=== PATIENT | male | born 1945 ===

== ENCOUNTER 2019-01-11 20:15 | Inpatient (IN) ==
[2019-01-11] MEDS ORDERED: SODIUM CHLORIDE 0.9% 1,000 ML IV PRN (21:09)
[2019-01-11] MEDS ORDERED: POTASSIUM CHLORIDE 20 MEQ PACK PER TUBE PRN (21:11)
[2019-01-11] MEDS ORDERED: POTASSIUM CHLORIDE RIDER 0 ML IV ONE (21:58)
[2019-01-11 22:05] LABS: Basophils % 0.1 % (0.0-0.8); Eosinophils # 0.3 10*3/uL (0.0-0.87); Eosinophils % 2.8 % (0.00-10.9); Hematocrit 21.2 VOL% (42.0-52.0); Hemoglobin 6.7 GM/DL (14.0-18.0); Immature Granulocytes % 0.4 %; Immature Granulocytes Absolute 0.04 #; Lymphocytes # 2.2 10*3/uL (1.4-4.0); Lymphocytes % 19.4 % (21.2-54.2); Mean Corpuscular HGB Conc 31.6 GM/DL (32-36); Mean Corpuscular Volume 102.9 FL (87-102); Mean Platelet Volume 9.8 FL (9.6-12.0); Monocytes % 6.7 % (1.7-12.7); Neutrophils % 70.6 % (38.7-73.9); Platelet Count 475 T/CUMM (130-400); Red Blood Count 2.06 MC/CUMM (3.8-5.5); Red Cell Distribution Width 14.2 % (9.3-17.3); White Blood Count 11.3 T/CUMM (4-12)
[2019-01-11] MEDS ORDERED: POTASSIUM CHLORIDE 20 MEQ PACK ONE (22:08)
[2019-01-11 22:19] LABS: Alanine Aminotransferase 10 U/L (16-61); Albumin 1.4 G/DL (3.4-5.0); Alkaline Phosphatase 143 U/L (45-117); Aspartate Amino Transferase 15 U/L (0-37); Bilirubin,Total < 0.39 MG/DL (0.2-1.0); Blood Urea Nitrogen 19 MG/DL (7-18); Calcium 7.1 MG/DL (8.5-10.1); Glucose 179 MG/DL (74-106); Osmolality,Calculated 282.5 MOS/KG (273-304)
[2019-01-11 22:32] LABS: Folate > 24.0 NG/ML (5.4-24.0); Vitamin B12 739 PG/ML (211-911)
[2019-01-11 23:11] LABS: Sedimentation Rate-Westergren 145 MM/HR (0-20)
[2019-01-11 23:12] LABS: % Iron Saturation 19.3 % (18-50)
[2019-01-11 23:45] LABS: Apearance,Urine CLOUDY (Clear); Bacteria,Urine Many /HPF (Few); Bilirubin,Urine Negative (Negative); Blood, Urine Negative (Negative); Glucose,Urine (UA) 50 mg/dL (Negative); Ketones,Urine 5 mg/dL (Negative); Nitrite,Urine Negative (Negative); Protein,Urine 100 MG/DL; Urine Color Yellow (Yellow); Urine Specific Gravity 1.011 (1.001-1.035); Urine Urobilinogen < 2.0 EU/DL (0.2-1.0); WBC,Urine 41 /HPF (0-6)
[2019-01-12] MEDS: SODIUM CHLORIDE 0.9% 1,000 ML IV SCH ×4 (00:05→16:43)
[2019-01-12] MEDS ORDERED: GLUCAGON 1 MG VIAL IM PRN (00:37)
[2019-01-12] MEDS ORDERED: ACETAMINOPHEN 325 MG TABLET PEG PRN (00:37)
[2019-01-12] MEDS ORDERED: DEXTROSE 50% 25 GM/50 ML VIAL IV PRN (00:37)
[2019-01-12] MEDS ORDERED: ONDANSETRON 4 MG/2 ML VIAL IV PRN (00:37)
[2019-01-12] MEDS: POTASSIUM CHLORIDE 20 MEQ PACK PER TUBE PRN (02:52)
[2019-01-12] MEDS: cefTRIAXone 1,000 MG in SYRINGE 1 EACH IV SCH (02:52)
[2019-01-12] MEDS: levETIRAcetam LIQUID 100 MG/ML 30 ML/BOTTLE PO SCH ×3 (02:53→21:48)
[2019-01-12 07:32] LABS: Calcium 7.3 MG/DL (8.5-10.1); Osmolality,Calculated 281.8 MOS/KG (273-304); Risk Ratio 4.36; Thyroid Stimulating Hormone 1.2 uIU/ml (0.358-3.74)
[2019-01-12 09:23] LABS: Hemoglobin A1 (Alkaline) 97.2 % (96.5-98.5); Hemoglobin A2 (Alkaline) 2.8 % (1.5-3.5)
[2019-01-12 10:43] LABS: Lymphocytes # 2.8 10*3/uL (1.4-4.0); Lymphocytes % 23.9 % (21.2-54.2); Red Cell Distribution Width 15.4 % (9.3-17.3); White Blood Count 11.9 T/CUMM (4-12)
[2019-01-12 10:51] LABS: Basophils % 0.3 % (0.0-0.8); Eosinophils # 0.1 10*3/uL (0.0-0.87); Eosinophils % 0.9 % (0.00-10.9); Hematocrit 31.9 VOL% (42.0-52.0); Immature Granulocytes % 0.3 %; Immature Granulocytes Absolute 0.04 #; Mean Corpuscular HGB Conc 32.3 GM/DL (32-36); Mean Corpuscular Volume 97.9 FL (87-102); Mean Platelet Volume 9.1 FL (9.6-12.0); Monocytes % 6.4 % (1.7-12.7); Neutrophils % 68.2 % (38.7-73.9); Platelet Count 410 T/CUMM (130-400)
[2019-01-12 10:59] LABS: Hemoglobin 10.3 GM/DL (14.0-18.0); Red Blood Count 3.26 MC/CUMM (3.8-5.5)
[2019-01-12] MEDS: INSULIN LISPRO 100 UNIT/ML SUBCUT SCH ×4 (15:33→21:48)
[2019-01-12] MEDS: INSULIN GLARGINE 100 UNIT/ML SUBCUT SCH (21:47)
[2019-01-13] MEDS: cefTRIAXone 1,000 MG in SYRINGE 1 EACH IV SCH (02:00)
[2019-01-13] MEDS: SODIUM CHLORIDE 0.9% 1,000 ML IV SCH ×3 (02:00→17:23)
[2019-01-13 04:58] LABS: Basophils % 0.2 % (0.0-0.8); Eosinophils # 0.4 10*3/uL (0.0-0.87); Eosinophils % 4.7 % (0.00-10.9); Hematocrit 29.3 VOL% (42.0-52.0); Hemoglobin 9.6 GM/DL (14.0-18.0); Immature Granulocytes % 0.5 %; Immature Granulocytes Absolute 0.04 #; Lymphocytes # 2.6 10*3/uL (1.4-4.0); Lymphocytes % 32.3 % (21.2-54.2); Mean Corpuscular HGB Conc 32.8 GM/DL (32-36); Mean Platelet Volume 10.1 FL (9.6-12.0); Monocytes % 6.3 % (1.7-12.7); Platelet Count 185 T/CUMM (130-400); Red Blood Count 2.99 MC/CUMM (3.8-5.5); Red Cell Distribution Width 15.1 % (9.3-17.3); White Blood Count 8.1 T/CUMM (4-12)
[2019-01-13 05:25] LABS: Calcium 7.2 MG/DL (8.5-10.1); Osmolality,Calculated 281.4 MOS/KG (273-304)
[2019-01-13] MEDS: POTASSIUM CHLORIDE 20 MEQ PACK PER TUBE PRN ×3 (08:20→16:43)
[2019-01-13] MEDS: levETIRAcetam LIQUID 100 MG/ML 30 ML/BOTTLE PO SCH ×2 (08:20→22:09)
[2019-01-13] MEDS ORDERED: MAGNESIUM SULF RIDER 4 GM in PREMIX 1 EACH IV PRN (09:58)
[2019-01-13] MEDS ORDERED: MAGNESIUM SULF RIDER 2 GM in PREMIX 1 EACH IV PRN (09:58)
[2019-01-13] MEDS: INSULIN LISPRO 100 UNIT/ML SUBCUT SCH ×4 (14:09→20:38)
[2019-01-13] MEDS ORDERED: ENOXAPARIN 40 MG/0.4 ML SYRINGE SUBCUT SCH (14:30)
[2019-01-13] MEDS: ENOXAPARIN 60 MG/0.6 ML SYRINGE SUBCUT SCH (16:43)
[2019-01-13] MEDS: INSULIN GLARGINE 100 UNIT/ML SUBCUT SCH (22:13)
[2019-01-14 01:53] LABS: Total Protein 6.3 G/DL (6.4-8.3)
[2019-01-14] MEDS: cefTRIAXone 1,000 MG in SYRINGE 1 EACH IV SCH (02:59)
[2019-01-14] MEDS: ENOXAPARIN 60 MG/0.6 ML SYRINGE SUBCUT SCH (04:35)
[2019-01-14] MEDS: levETIRAcetam LIQUID 100 MG/ML 30 ML/BOTTLE PO SCH ×2 (09:16→20:55)
[2019-01-14] MEDS: INSULIN LISPRO 100 UNIT/ML SUBCUT SCH ×4 (09:42→20:56)
[2019-01-14] MEDS: SODIUM CHLORIDE 0.9% 1,000 ML IV SCH (10:46)
[2019-01-14] MEDS: ACETAMINOPHEN 325 MG/10.15 ML UDCUP PEG PRN (13:36)
[2019-01-14] MEDS ORDERED: hydrALAZINE 10 MG TABLET PEG PRN (14:47)
[2019-01-14] MEDS: MEROPENEM 500 MG in SODIUM CHLORIDE 0.9% 100 ML IV SCH (15:47)
[2019-01-14] MEDS: amLODIPine 10 MG TABLET PEG SCH (15:47)
[2019-01-14] MEDS: APIXABAN 5 MG TABLET PEG SCH (20:55)
[2019-01-14] MEDS: INSULIN GLARGINE 100 UNIT/ML SUBCUT SCH (20:55)
[2019-01-15] MEDS: MEROPENEM 500 MG in SODIUM CHLORIDE 0.9% 100 ML IV SCH ×2 (03:45→16:13)
[2019-01-15 05:31] LABS: Basophils % 0.1 % (0.0-0.8); Eosinophils # 0.3 10*3/uL (0.0-0.87); Eosinophils % 3.6 % (0.00-10.9); Hemoglobin 10.5 GM/DL (14.0-18.0); Immature Granulocytes % 0.6 %; Immature Granulocytes Absolute 0.05 #; Lymphocytes # 2.4 10*3/uL (1.4-4.0); Lymphocytes % 30.8 % (21.2-54.2); Mean Corpuscular HGB Conc 31.8 GM/DL (32-36); Mean Platelet Volume 9.6 FL (9.6-12.0); Monocytes % 6.6 % (1.7-12.7); Neutrophils % 58.3 % (38.7-73.9); Platelet Count 366 T/CUMM (130-400); Red Cell Distribution Width 14.3 % (9.3-17.3); White Blood Count 7.8 T/CUMM (4-12)
[2019-01-15 05:51] LABS: Calcium 7.6 MG/DL (8.5-10.1); Osmolality,Calculated 295.4 MOS/KG (273-304); Prealbumin 8.8 MG/DL (20-40)
[2019-01-15 06:42] LABS: Total Protein (Chem) 6.3 G/DL (6.4-8.3)
[2019-01-15 09:21] LABS: Albumin (SPE) 1.8 G/DL (3.2-5.3); Albumin (SPE) Rel % 29.3 %; Alpha 1 (SPE) 0.3 G/DL (0.1-0.4); Alpha 1 (SPE) Rel % 4.8 %; Alpha 2 (SPE) 0.9 G/DL (0.4-1.0); Alpha 2 (SPE) Rel % 14.3 %; Beta (SPE) 0.7 G/DL (0.5-1.1); Beta (SPE) Rel % 10.9 %; Gamma (SPE) 2.6 G/DL (0.7-1.7); Gamma (SPE) Rel % 40.7 %
[2019-01-15] MEDS: levETIRAcetam LIQUID 100 MG/ML 30 ML/BOTTLE PO SCH (09:33)
[2019-01-15] MEDS: amLODIPine 10 MG TABLET PEG SCH (09:33)
[2019-01-15] MEDS: INSULIN LISPRO 100 UNIT/ML SUBCUT SCH ×4 (09:33→21:37)
[2019-01-15] MEDS: APIXABAN 5 MG TABLET PEG SCH (09:33)
[2019-01-15] MEDS: APIXABAN 2.5 MG TABLET PEG SCH ×2 (14:08→21:36)
[2019-01-15] MEDS: LANSOPRAZOLE ODT 30 MG TABLET PEG SCH (16:13)
[2019-01-15] MEDS: INSULIN GLARGINE 100 UNIT/ML SUBCUT SCH (21:36)
[2019-01-16] MEDS: levETIRAcetam LIQUID 100 MG/ML 30 ML/BOTTLE PO SCH ×3 (00:12→21:13)
[2019-01-16] MEDS: MEROPENEM 500 MG in SODIUM CHLORIDE 0.9% 100 ML IV SCH ×2 (03:38→16:07)
[2019-01-16] MEDS: INSULIN LISPRO 100 UNIT/ML SUBCUT SCH ×4 (08:44→21:12)
[2019-01-16] MEDS: APIXABAN 2.5 MG TABLET PEG SCH ×2 (09:41→21:10)
[2019-01-16] MEDS: amLODIPine 10 MG TABLET PEG SCH (09:41)
[2019-01-16] MEDS: LANSOPRAZOLE ODT 30 MG TABLET PEG SCH (09:41)
[2019-01-16] MEDS ORDERED: TUBERCULIN SKIN TEST 0.1 ML SYRINGE INTRADERM ONE (11:32)
[2019-01-16] MEDS: POTASSIUM PHOS/SOD PHOS POWDER 250 MG PACK PO SCH ×2 (16:07→21:13)
[2019-01-16] MEDS: INSULIN GLARGINE 100 UNIT/ML SUBCUT SCH (21:10)
[2019-01-17] MEDS: MEROPENEM 500 MG in SODIUM CHLORIDE 0.9% 100 ML IV SCH ×2 (02:19→15:37)
[2019-01-17 05:22] LABS: Basophils % 0.2 % (0.0-0.8); Eosinophils # 0.4 10*3/uL (0.0-0.87); Eosinophils % 3.4 % (0.00-10.9); Hematocrit 30.1 VOL% (42.0-52.0); Hemoglobin 9.7 GM/DL (14.0-18.0); Immature Granulocytes % 0.6 %; Immature Granulocytes Absolute 0.08 #; Lymphocytes # 2.5 10*3/uL (1.4-4.0); Lymphocytes % 19.1 % (21.2-54.2); Mean Corpuscular HGB Conc 32.2 GM/DL (32-36); Mean Platelet Volume 9.6 FL (9.6-12.0); Monocytes % 5.9 % (1.7-12.7); Neutrophils % 70.8 % (38.7-73.9); Platelet Count 415 T/CUMM (130-400); Red Blood Count 3.01 MC/CUMM (3.8-5.5); Red Cell Distribution Width 14.3 % (9.3-17.3)
[2019-01-17 05:41] LABS: Calcium 7.6 MG/DL (8.5-10.1); Osmolality,Calculated 295.5 MOS/KG (273-304)
[2019-01-17] MEDS: INSULIN LISPRO 100 UNIT/ML SUBCUT SCH ×4 (07:30→21:21)
[2019-01-17 09:07] LABS: Immuno Free Light Chain Kappa 17.88 MG/DL (0.33-1.94); Immuno Free Light Chain Lambda 16.24 MG/DL (0.57-2.63); Immuno Free Light Chain Ratio 1.1 MG/DL (0.26-1.65)
[2019-01-17] MEDS: POTASSIUM PHOS/SOD PHOS POWDER 250 MG PACK PO SCH (09:51)
[2019-01-17] MEDS: amLODIPine 10 MG TABLET PEG SCH (09:51)
[2019-01-17] MEDS: LANSOPRAZOLE ODT 30 MG TABLET PEG SCH (09:51)
[2019-01-17] MEDS: APIXABAN 2.5 MG TABLET PEG SCH ×2 (09:51→21:19)
[2019-01-17] MEDS: levETIRAcetam LIQUID 100 MG/ML 30 ML/BOTTLE PO SCH ×2 (09:52→21:19)
[2019-01-17] MEDS: INSULIN GLARGINE 100 UNIT/ML SUBCUT SCH (21:21)
[2019-01-18] MEDS: MEROPENEM 500 MG in SODIUM CHLORIDE 0.9% 100 ML IV SCH ×2 (04:53→15:41)
[2019-01-18 06:44] LABS: Basophils % 0.2 % (0.0-0.8); Eosinophils # 0.6 10*3/uL (0.0-0.87); Eosinophils % 4.7 % (0.00-10.9); Hemoglobin 9.1 GM/DL (14.0-18.0); Immature Granulocytes % 0.8 %; Lymphocytes # 2.2 10*3/uL (1.4-4.0); Lymphocytes % 17.2 % (21.2-54.2); Mean Corpuscular HGB Conc 31.4 GM/DL (32-36); Mean Platelet Volume 9.7 FL (9.6-12.0); Monocytes % 6.9 % (1.7-12.7); Neutrophils % 70.2 % (38.7-73.9); Platelet Count 366 T/CUMM (130-400); Red Blood Count 2.87 MC/CUMM (3.8-5.5); Red Cell Distribution Width 14.4 % (9.3-17.3); White Blood Count 12.7 T/CUMM (4-12)
[2019-01-18 07:22] LABS: Calcium 7.5 MG/DL (8.5-10.1); Osmolality,Calculated 293.5 MOS/KG (273-304); Prealbumin 10.8 MG/DL (20-40)
[2019-01-18] MEDS: INSULIN LISPRO 100 UNIT/ML SUBCUT SCH ×4 (09:00→21:35)
[2019-01-18] MEDS: amLODIPine 10 MG TABLET PEG SCH (09:01)
[2019-01-18] MEDS: APIXABAN 2.5 MG TABLET PEG SCH ×2 (09:01→21:33)
[2019-01-18] MEDS: levETIRAcetam LIQUID 100 MG/ML 30 ML/BOTTLE PO SCH ×2 (09:01→21:33)
[2019-01-18] MEDS: LANSOPRAZOLE ODT 30 MG TABLET PEG SCH (09:01)
[2019-01-18] MEDS: INSULIN GLARGINE 100 UNIT/ML SUBCUT SCH (21:34)
[2019-01-19] MEDS: MEROPENEM 500 MG in SODIUM CHLORIDE 0.9% 100 ML IV SCH ×2 (05:15→14:08)
[2019-01-19 05:45] LABS: Basophils % 0.2 % (0.0-0.8); Eosinophils # 0.6 10*3/uL (0.0-0.87); Eosinophils % 4.4 % (0.00-10.9); Hematocrit 28.6 VOL% (42.0-52.0); Hemoglobin 8.8 GM/DL (14.0-18.0); Immature Granulocytes % 0.8 %; Immature Granulocytes Absolute 0.11 #; Lymphocytes # 3.4 10*3/uL (1.4-4.0); Mean Corpuscular HGB Conc 30.8 GM/DL (32-36); Mean Corpuscular Volume 101.8 FL (87-102); Mean Platelet Volume 10.6 FL (9.6-12.0); Monocytes % 7.6 % (1.7-12.7); Platelet Count 320 T/CUMM (130-400); Red Blood Count 2.81 MC/CUMM (3.8-5.5); Red Cell Distribution Width 14.2 % (9.3-17.3); White Blood Count 13.2 T/CUMM (4-12)
[2019-01-19 06:08] LABS: Hypochromasia 1+; Platelet Estimate Adequate
[2019-01-19 06:12] LABS: Calcium 7.6 MG/DL (8.5-10.1)
[2019-01-19] MEDS: INSULIN LISPRO 100 UNIT/ML SUBCUT SCH ×4 (07:31→20:56)
[2019-01-19] MEDS: amLODIPine 10 MG TABLET PEG SCH (09:49)
[2019-01-19] MEDS: APIXABAN 2.5 MG TABLET PEG SCH ×2 (09:49→20:57)
[2019-01-19] MEDS: levETIRAcetam LIQUID 100 MG/ML 30 ML/BOTTLE PO SCH ×2 (09:49→20:55)
[2019-01-19] MEDS: LANSOPRAZOLE ODT 30 MG TABLET PEG SCH (09:49)
[2019-01-19] MEDS: INSULIN GLARGINE 100 UNIT/ML SUBCUT SCH (20:56)
[2019-01-20 06:53] LABS: Basophils % 0.3 % (0.0-0.8); Eosinophils # 0.5 10*3/uL (0.0-0.87); Eosinophils % 4.6 % (0.00-10.9); Hematocrit 28.9 VOL% (42.0-52.0); Hemoglobin 9.3 GM/DL (14.0-18.0); Immature Granulocytes % 0.6 %; Immature Granulocytes Absolute 0.07 #; Lymphocytes # 3.3 10*3/uL (1.4-4.0); Lymphocytes % 29.5 % (21.2-54.2); Mean Corpuscular HGB Conc 32.2 GM/DL (32-36); Mean Corpuscular Volume 100.3 FL (87-102); Mean Platelet Volume 10.2 FL (9.6-12.0); Monocytes % 8.8 % (1.7-12.7); Neutrophils % 56.2 % (38.7-73.9); Platelet Count 418 T/CUMM (130-400); Red Blood Count 2.88 MC/CUMM (3.8-5.5); White Blood Count 11.3 T/CUMM (4-12)
[2019-01-20 07:15] LABS: Calcium 7.7 MG/DL (8.5-10.1)
[2019-01-20] MEDS: INSULIN LISPRO 100 UNIT/ML SUBCUT SCH ×4 (09:57→21:41)
[2019-01-20] MEDS: amLODIPine 10 MG TABLET PEG SCH (09:59)
[2019-01-20] MEDS: levETIRAcetam LIQUID 100 MG/ML 30 ML/BOTTLE PO SCH ×2 (09:59→21:42)
[2019-01-20] MEDS: LANSOPRAZOLE ODT 30 MG TABLET PEG SCH (10:00)
[2019-01-20] MEDS: ERTAPENEM 1,000 MG in SODIUM CHLORIDE 0.9% 100 ML IV SCH (10:00)
[2019-01-20] MEDS: APIXABAN 2.5 MG TABLET PEG SCH ×2 (10:00→21:43)
[2019-01-20] MEDS: INSULIN GLARGINE 100 UNIT/ML SUBCUT SCH (21:41)
[2019-01-21] MEDS: ACETAMINOPHEN 325 MG/10.15 ML UDCUP PEG PRN (01:19)
[2019-01-21] MEDS: levETIRAcetam LIQUID 100 MG/ML 30 ML/BOTTLE PO SCH ×2 (10:26→22:40)
[2019-01-21] MEDS: INSULIN LISPRO 100 UNIT/ML SUBCUT SCH ×4 (10:26→22:41)
[2019-01-21] MEDS: APIXABAN 2.5 MG TABLET PEG SCH ×2 (10:27→22:40)
[2019-01-21] MEDS: amLODIPine 10 MG TABLET PEG SCH (10:27)
[2019-01-21] MEDS: ERTAPENEM 1,000 MG in SODIUM CHLORIDE 0.9% 100 ML IV SCH (10:27)
[2019-01-21] MEDS: LANSOPRAZOLE ODT 30 MG TABLET PEG SCH (10:27)
[2019-01-21] MEDS: INSULIN GLARGINE 100 UNIT/ML SUBCUT SCH (22:41)
[2019-01-22 05:31] LABS: Basophils % 0.2 % (0.0-0.8); Eosinophils # 0.3 10*3/uL (0.0-0.87); Eosinophils % 2.4 % (0.00-10.9); Hematocrit 28.1 VOL% (42.0-52.0); Hemoglobin 9.2 GM/DL (14.0-18.0); Immature Granulocytes % 0.6 %; Immature Granulocytes Absolute 0.08 #; Lymphocytes # 2.5 10*3/uL (1.4-4.0); Lymphocytes % 19.3 % (21.2-54.2); Mean Corpuscular HGB Conc 32.7 GM/DL (32-36); Mean Corpuscular Volume 98.6 FL (87-102); Mean Platelet Volume 10.2 FL (9.6-12.0); Monocytes % 7.2 % (1.7-12.7); Neutrophils % 70.3 % (38.7-73.9); Platelet Count 411 T/CUMM (130-400); Red Blood Count 2.85 MC/CUMM (3.8-5.5); Red Cell Distribution Width 14.2 % (9.3-17.3); White Blood Count 13.1 T/CUMM (4-12)
[2019-01-22 06:01] LABS: Calcium 7.8 MG/DL (8.5-10.1); Osmolality,Calculated 303.5 MOS/KG (273-304); Prealbumin 10.9 MG/DL (20-40)
[2019-01-22] MEDS: ACETAMINOPHEN 325 MG/10.15 ML UDCUP PEG PRN (06:02)
[2019-01-22 07:46] LABS: ABG Base Excess 1.3 MMOL/L (-2.5-2.5); ABG HCO3 25.6 MMOL/L (20-26); ABG Oxygen Saturation 99.8 % (95-100); ABG PCO2 30.9 MM HG (35-48); ABG PH 7.496 (7.35-7.45); ABG TCO2 21.4 MMOL/L (23-27); Allen Test Positive; Pt O2 Delivery Device Venturi Mask
[2019-01-22] MEDS: APIXABAN 2.5 MG TABLET PEG SCH ×2 (09:57→21:38)
[2019-01-22] MEDS: INSULIN LISPRO 100 UNIT/ML SUBCUT SCH ×4 (09:57→21:39)
[2019-01-22] MEDS: amLODIPine 10 MG TABLET PEG SCH (09:58)
[2019-01-22] MEDS: ERTAPENEM 1,000 MG in SODIUM CHLORIDE 0.9% 100 ML IV SCH (09:59)
[2019-01-22] MEDS: levETIRAcetam LIQUID 100 MG/ML 30 ML/BOTTLE PO SCH ×2 (09:59→21:55)
[2019-01-22] MEDS: LANSOPRAZOLE ODT 30 MG TABLET PEG SCH (10:00)
[2019-01-22] MEDS: INSULIN GLARGINE 100 UNIT/ML SUBCUT SCH (21:39)
[2019-01-22] MEDS: ALBUTEROL/IPRATROPIUM 3 ML NEB RESP TX PRN (22:20)
[2019-01-23] MEDS: ALBUTEROL/IPRATROPIUM 3 ML NEB RESP TX PRN ×3 (03:50→17:50)
[2019-01-23 05:43] LABS: Calcium 7.8 MG/DL (8.5-10.1); Osmolality,Calculated 300.7 MOS/KG (273-304)
[2019-01-23] MEDS: INSULIN LISPRO 100 UNIT/ML SUBCUT SCH ×4 (07:58→21:09)
[2019-01-23] MEDS: LANSOPRAZOLE ODT 30 MG TABLET PEG SCH (12:26)
[2019-01-23] MEDS: levETIRAcetam LIQUID 100 MG/ML 30 ML/BOTTLE PO SCH ×2 (12:26→21:05)
[2019-01-23] MEDS: APIXABAN 2.5 MG TABLET PEG SCH ×2 (12:26→21:05)
[2019-01-23] MEDS: amLODIPine 10 MG TABLET PEG SCH (12:26)
[2019-01-23] MEDS: ERTAPENEM 1,000 MG in SODIUM CHLORIDE 0.9% 100 ML IV SCH (13:54)
[2019-01-23] MEDS: INSULIN GLARGINE 100 UNIT/ML SUBCUT SCH (21:05)
[2019-01-24] MEDS: ALBUTEROL/IPRATROPIUM 3 ML NEB RESP TX PRN ×5 (04:00→18:50)
[2019-01-24 05:20] LABS: Basophils % 0.3 % (0.0-0.8); Eosinophils # 0.5 10*3/uL (0.0-0.87); Eosinophils % 4.1 % (0.00-10.9); Hematocrit 26.3 VOL% (42.0-52.0); Hemoglobin 8.1 GM/DL (14.0-18.0); Immature Granulocytes % 0.6 %; Immature Granulocytes Absolute 0.07 #; Lymphocytes # 2.8 10*3/uL (1.4-4.0); Lymphocytes % 25.7 % (21.2-54.2); Mean Corpuscular HGB Conc 30.8 GM/DL (32-36); Mean Corpuscular Volume 101.9 FL (87-102); Mean Platelet Volume 10.3 FL (9.6-12.0); Monocytes % 9.1 % (1.7-12.7); Neutrophils % 60.2 % (38.7-73.9); Platelet Count 421 T/CUMM (130-400); Red Blood Count 2.58 MC/CUMM (3.8-5.5); Red Cell Distribution Width 14.6 % (9.3-17.3)
[2019-01-24 05:44] LABS: Calcium 7.8 MG/DL (8.5-10.1); Osmolality,Calculated 310.6 MOS/KG (273-304); Prealbumin 9.5 MG/DL (20-40)
[2019-01-24] MEDS: INSULIN LISPRO 100 UNIT/ML SUBCUT SCH ×4 (07:35→23:16)
[2019-01-24] MEDS: amLODIPine 10 MG TABLET PEG SCH (08:33)
[2019-01-24] MEDS: LANSOPRAZOLE ODT 30 MG TABLET PEG SCH (08:33)
[2019-01-24] MEDS: APIXABAN 2.5 MG TABLET PEG SCH ×2 (08:33→23:16)
[2019-01-24] MEDS: levETIRAcetam LIQUID 100 MG/ML 30 ML/BOTTLE PO SCH ×2 (08:34→23:16)
[2019-01-24] MEDS: ERTAPENEM 1,000 MG in SODIUM CHLORIDE 0.9% 100 ML IV SCH (08:35)
[2019-01-24] MEDS ORDERED: FUROSEMIDE 40 MG/4 ML VIAL IV ONE (10:46)
[2019-01-24] MEDS: INSULIN GLARGINE 100 UNIT/ML SUBCUT SCH (23:16)
[2019-01-25] MEDS: ALBUTEROL/IPRATROPIUM 3 ML NEB RESP TX PRN ×4 (06:47→19:34)
[2019-01-25] MEDS: INSULIN LISPRO 100 UNIT/ML SUBCUT SCH ×4 (09:43→20:30)
[2019-01-25 12:17] LABS: Osmolality,Calculated 333.4 MOS/KG (273-304)
[2019-01-25] MEDS ORDERED: LIDOCAINE 1% 20 ML VIAL MISC INJ ONE (12:30)
[2019-01-25] MEDS ORDERED: LIDOCAINE 2% 20 ML VIAL RESP TX ONE (12:30)
[2019-01-25] MEDS ORDERED: LIDOCAINE 2% VISCOUS 100 ML BOTTLE SWISH/SPIT ONE (12:30)
[2019-01-25] MEDS: levETIRAcetam LIQUID 100 MG/ML 30 ML/BOTTLE PO SCH ×2 (13:12→23:12)
[2019-01-25] MEDS: amLODIPine 10 MG TABLET PEG SCH (13:13)
[2019-01-25] MEDS: APIXABAN 2.5 MG TABLET PEG SCH ×2 (13:13→23:11)
[2019-01-25] MEDS: LANSOPRAZOLE ODT 30 MG TABLET PEG SCH (13:13)
[2019-01-25 13:18] LABS: Calcium 7.7 MG/DL (8.5-10.1); Osmolality,Calculated 330.4 MOS/KG (273-304)
[2019-01-25] MEDS ORDERED: SODIUM POLYSTYRENE SULFATE 15 GM/60 ML BOTTLE PO ONE (15:00)
[2019-01-25] MEDS: INSULIN GLARGINE 100 UNIT/ML SUBCUT SCH (23:12)
[2019-01-26] MEDS: ALBUTEROL/IPRATROPIUM 3 ML NEB RESP TX PRN ×3 (00:21→08:01)
[2019-01-26 05:20] LABS: Calcium 7.7 MG/DL (8.5-10.1)
[2019-01-26] MEDS: ALBUTEROL/IPRATROPIUM 3 ML NEB RESP TX SCH ×5 (07:25→22:45)
[2019-01-26] MEDS: INSULIN LISPRO 100 UNIT/ML SUBCUT SCH ×4 (08:34→22:05)
[2019-01-26] MEDS: levETIRAcetam LIQUID 100 MG/ML 30 ML/BOTTLE PO SCH ×2 (08:34→22:03)
[2019-01-26] MEDS: amLODIPine 10 MG TABLET PEG SCH (08:35)
[2019-01-26] MEDS: LANSOPRAZOLE ODT 30 MG TABLET PEG SCH (08:35)
[2019-01-26] MEDS: APIXABAN 2.5 MG TABLET PEG SCH ×2 (08:35→22:03)
[2019-01-26 08:38] LABS: Basophils # 0.1 10*3/uL (0.0-0.2); Basophils % 0.3 % (0.0-0.8); Eosinophils # 0.2 10*3/uL (0.0-0.87); Hematocrit 31.6 VOL% (42.0-52.0); Hemoglobin 9.4 GM/DL (14.0-18.0); Immature Granulocytes % 0.8 %; Lymphocytes # 5.2 10*3/uL (1.4-4.0); Lymphocytes % 21.3 % (21.2-54.2); Mean Corpuscular HGB Conc 29.7 GM/DL (32-36); Mean Corpuscular Volume 106.4 FL (87-102); Mean Platelet Volume 10.6 FL (9.6-12.0); Monocytes % 5.2 % (1.7-12.7); Neutrophils % 71.4 % (38.7-73.9); Platelet Count 440 T/CUMM (130-400); Red Blood Count 2.97 MC/CUMM (3.8-5.5); Red Cell Distribution Width 14.8 % (9.3-17.3); White Blood Count 24.2 T/CUMM (4-12)
[2019-01-26 08:57] LABS: Band Neutrophils 1 % (0-10); Hypochromasia 1+; Lymphocytes 19 % (20-55); Platelet Estimate Adequate; Segmented Neutrophils 76 % (50-85); Total Cells Counted 100
[2019-01-26] MEDS: CEFEPIME 1,000 MG in SODIUM CHLORIDE 0.9% 100 ML IV SCH ×3 (10:07→22:03)
[2019-01-26] MEDS: DORNASE ALFA 2.5 MG/2.5 ML VIAL RESP TX SCH ×2 (11:45→19:05)
[2019-01-26] MEDS: VANCOMYCIN INJ 1,000 MG in SODIUM CHLORIDE 0.9% 250 ML IV SCH (12:12)
[2019-01-26] MEDS: DEXTROSE 5% NACL 0.22% 1,000 ML IV SCH (12:53)
[2019-01-26] MEDS: INSULIN GLARGINE 100 UNIT/ML SUBCUT SCH (22:01)
[2019-01-27] MEDS: ALBUTEROL/IPRATROPIUM 3 ML NEB RESP TX SCH ×6 (02:20→23:16)
[2019-01-27] MEDS: CEFEPIME 1,000 MG in SODIUM CHLORIDE 0.9% 100 ML IV SCH ×2 (04:13→09:00)
[2019-01-27] MEDS: DEXTROSE 5% NACL 0.22% 1,000 ML IV SCH ×2 (04:14→17:44)
[2019-01-27 06:47] LABS: Calcium 7.5 MG/DL (8.5-10.1); Osmolality,Calculated 319.7 MOS/KG (273-304)
[2019-01-27] MEDS: DORNASE ALFA 2.5 MG/2.5 ML VIAL RESP TX SCH ×2 (07:48→19:01)
[2019-01-27] MEDS: INSULIN LISPRO 100 UNIT/ML SUBCUT SCH ×4 (08:05→21:54)
[2019-01-27] MEDS: APIXABAN 2.5 MG TABLET PEG SCH ×2 (08:31→21:54)
[2019-01-27] MEDS: amLODIPine 10 MG TABLET PEG SCH (08:32)
[2019-01-27] MEDS: levETIRAcetam LIQUID 100 MG/ML 30 ML/BOTTLE PO SCH ×2 (08:32→22:01)
[2019-01-27] MEDS: LANSOPRAZOLE ODT 30 MG TABLET PEG SCH (08:32)
[2019-01-27] MEDS: VANCOMYCIN INJ 1,000 MG in SODIUM CHLORIDE 0.9% 250 ML IV SCH (10:37)
[2019-01-27] MEDS: TOBRAMYCIN INJ 400 MG in SODIUM CHLORIDE 0.9% 100 ML IV SCH (14:15)
[2019-01-27] MEDS: INSULIN GLARGINE 100 UNIT/ML SUBCUT SCH (21:53)
[2019-01-28] MEDS: ALBUTEROL/IPRATROPIUM 3 ML NEB RESP TX SCH ×6 (02:50→23:20)
[2019-01-28 05:53] LABS: Calcium 7.6 MG/DL (8.5-10.1); Osmolality,Calculated 305.5 MOS/KG (273-304)
[2019-01-28] MEDS: DORNASE ALFA 2.5 MG/2.5 ML VIAL RESP TX SCH ×2 (08:13→19:15)
[2019-01-28] MEDS: LANSOPRAZOLE ODT 30 MG TABLET PEG SCH (08:59)
[2019-01-28] MEDS: APIXABAN 2.5 MG TABLET PEG SCH ×2 (08:59→22:32)
[2019-01-28] MEDS: amLODIPine 10 MG TABLET PEG SCH (08:59)
[2019-01-28] MEDS: levETIRAcetam LIQUID 100 MG/ML 30 ML/BOTTLE PO SCH ×2 (09:04→22:32)
[2019-01-28] MEDS: INSULIN LISPRO 100 UNIT/ML SUBCUT SCH ×4 (09:23→22:32)
[2019-01-28] MEDS: DEXTROSE 5% NACL 0.22% 1,000 ML IV SCH (09:23)
[2019-01-28 13:20] LABS: Basophils % 0.2 % (0.0-0.8); Eosinophils # 0.8 10*3/uL (0.0-0.87); Eosinophils % 7.8 % (0.00-10.9); Hematocrit 24.6 VOL% (42.0-52.0); Hemoglobin 7.7 GM/DL (14.0-18.0); Immature Granulocytes % 0.7 %; Immature Granulocytes Absolute 0.07 #; Lymphocytes # 2.2 10*3/uL (1.4-4.0); Mean Corpuscular HGB Conc 31.3 GM/DL (32-36); Mean Corpuscular Volume 102.1 FL (87-102); Mean Platelet Volume 10.4 FL (9.6-12.0); Monocytes % 5.4 % (1.7-12.7); Neutrophils % 63.9 % (38.7-73.9); Platelet Count 357 T/CUMM (130-400); Red Blood Count 2.41 MC/CUMM (3.8-5.5); Red Cell Distribution Width 13.2 % (9.3-17.3); White Blood Count 9.8 T/CUMM (4-12)
[2019-01-28] MEDS: TOBRAMYCIN 80 MG/2 ML VIAL RESP TX SCH (19:00)
[2019-01-28] MEDS: INSULIN GLARGINE 100 UNIT/ML SUBCUT SCH (22:32)
[2019-01-29] MEDS: DEXTROSE 5% NACL 0.22% 1,000 ML IV SCH (01:15)
[2019-01-29] MEDS: ALBUTEROL/IPRATROPIUM 3 ML NEB RESP TX SCH ×5 (03:20→19:45)
[2019-01-29 05:59] LABS: Calcium 7.5 MG/DL (8.5-10.1); Prealbumin 11.3 MG/DL (20-40)
[2019-01-29] MEDS: TOBRAMYCIN INJ 400 MG in SODIUM CHLORIDE 0.9% 100 ML IV SCH (07:41)
[2019-01-29] MEDS: TOBRAMYCIN 80 MG/2 ML VIAL RESP TX SCH ×4 (07:41→19:55)
[2019-01-29] MEDS: DORNASE ALFA 2.5 MG/2.5 ML VIAL RESP TX SCH ×2 (07:45→19:50)
[2019-01-29] MEDS: INSULIN LISPRO 100 UNIT/ML SUBCUT SCH ×4 (08:42→23:25)
[2019-01-29] MEDS ORDERED: SODIUM CHLORIDE 0.9% 1,000 ML IV PRN (09:10)
[2019-01-29] MEDS: LANSOPRAZOLE ODT 30 MG TABLET PEG SCH (10:14)
[2019-01-29] MEDS: levETIRAcetam LIQUID 100 MG/ML 30 ML/BOTTLE PO SCH ×2 (10:14→23:14)
[2019-01-29] MEDS: APIXABAN 2.5 MG TABLET PEG SCH ×2 (10:14→23:15)
[2019-01-29] MEDS: amLODIPine 10 MG TABLET PEG SCH (10:14)
[2019-01-29] MEDS ORDERED: TOBRAMYCIN INJ 400 MG in SODIUM CHLORIDE 0.9% 100 ML IV SCH (14:00)
[2019-01-29] MEDS: INSULIN GLARGINE 100 UNIT/ML SUBCUT SCH (23:25)
[2019-01-30] MEDS: ALBUTEROL/IPRATROPIUM 3 ML NEB RESP TX SCH ×4 (00:17→11:36)
[2019-01-30] MEDS: TOBRAMYCIN 80 MG/2 ML VIAL RESP TX SCH (07:15)
[2019-01-30] MEDS: DORNASE ALFA 2.5 MG/2.5 ML VIAL RESP TX SCH (07:30)
[2019-01-30 07:44] VITALS: BP 137/63
[2019-01-30 07:54] LABS: Basophils % 0.1 % (0.0-0.8); Eosinophils # 0.4 10*3/uL (0.0-0.87); Eosinophils % 4.4 % (0.00-10.9); Hematocrit 32.7 VOL% (42.0-52.0); Immature Granulocytes % 0.5 %; Immature Granulocytes Absolute 0.05 #; Lymphocytes # 2.9 10*3/uL (1.4-4.0); Lymphocytes % 28.7 % (21.2-54.2); Mean Corpuscular HGB Conc 33.6 GM/DL (32-36); Mean Corpuscular Volume 92.4 FL (87-102); Mean Platelet Volume 10.3 FL (9.6-12.0); Monocytes % 5.9 % (1.7-12.7); Neutrophils % 60.4 % (38.7-73.9); Platelet Count 335 T/CUMM (130-400); Red Cell Distribution Width 14.6 % (9.3-17.3); White Blood Count 10.1 T/CUMM (4-12)
[2019-01-30] MEDS: INSULIN LISPRO 100 UNIT/ML SUBCUT SCH ×2 (08:02→12:33)
[2019-01-30 08:09] LABS: Red Blood Count 3.54 MC/CUMM (3.8-5.5)
[2019-01-30 08:21] LABS: Calcium 7.9 MG/DL (8.5-10.1); Osmolality,Calculated 289.5 MOS/KG (273-304)
[2019-01-30] MEDS: APIXABAN 2.5 MG TABLET PEG SCH (09:43)
[2019-01-30] MEDS: LANSOPRAZOLE ODT 30 MG TABLET PEG SCH (09:43)
[2019-01-30] MEDS: levETIRAcetam LIQUID 100 MG/ML 30 ML/BOTTLE PO SCH (09:43)
[2019-01-30] MEDS: amLODIPine 10 MG TABLET PEG SCH (09:43)
== END 2019-01-30 13:28 | DRG 698 ==
LOC: EDUNIT# → EDBD → N.ED 20:15 → SUATTDRO 22:38 → N.EDINP 22:38 → N.5E 23:09 → N.ICU 01-22 07:08 → N.5E 01-22 18:57
PROVIDERS: ADMIT Internal Medicine; ATTEND Internal Medicine